=== PATIENT | female | born 1955 | race Hispanic/Latino ===

== ENCOUNTER → 2018-06-11 | Outpatient (CLI) | payer OTHER ==
[~2018-06-11] MED LIST: ASPI-1197 PO; ATOR40TA71 PO; BELI400V IV; CHOL500050 PO; DULA0.75 SQ; ESTR1VAG VG; FOLI1TAB15 PO; HYDR200T4 PO; INSLAN SQ; INSU100C14 SQ; INSU100I15 SQ; INSU200I SQ; LEVO150T11 PO; LEVO75TA10 PO; LINA5TAB PO; METF-446 PO; METH25VI11; METO5 PO; PRAV20TA4 PO; RAMI5CAP66 PO; RANI300T7 PO; REGADENOSON 0.4 MG/5 ML PF SYG IVP SCH; SOLI5 PO; SUCR1TAB2 PO; [UNRECOGNIZED DRUG - CODE] IARTIC; pepcid PO; vitamin d PO
== END | disposition home or self-care (01) ==
LOC: SHCH 10:00
PROVIDERS: ATTEND Internal Medicine Cardiovascular Disease
DX: Z01.810 Encounter for preprocedural cardiovascular examination (principal)
CPT/HCPCS: 78452; 93017; 96374; A9500 ×2; J2785

== ENCOUNTER → 2018-06-23 | Outpatient (CLI) | payer OTHER ==
[~2018-06-23] MED LIST changes: -REGADENOSON 0.4 MG/5 ML PF SYG IVP SCH
== END | disposition home or self-care (01) ==
LOC: OIH 14:44
PROVIDERS: ATTEND Internal Medicine Cardiovascular Disease
DX: Z13.6 Encounter for screening for cardiovascular disorders (principal)
CPT/HCPCS: 75571

== ENCOUNTER → 2018-06-23 | Outpatient (CLI) | payer OTHER ==
[~2018-06-23] VITALS: Ht 154.9 cm; Wt 121.7 kg
[~2018-06-23] MED LIST changes: +ACETAMINOPHEN 325 MG TAB PO PRN; +SODIUM CHLORIDE 0.9% 500ML 500 ML IV SCH
[2018-06-23 09:15] VITALS: BP 133/65
[2018-06-23 09:24] LABS: BASOPHILS % (AUTO) 0.7 % (0.0-5.0); EOSINOPHILS % (AUTO) 0.4 % (0.0-8.0); LYMPHOCYTES % (AUTO) 14.7 % (21.0-51.0); MEAN CORPUSCULAR HEMOGLOBIN 28.4 pg (27.0-33.0); MEAN CORPUSCULAR HGB CONC 32.8 g/dL (32.0-36.0); MEAN CORPUSCULAR VOLUME 86.5 fL (79-99); MONOCYTES % (AUTO) 7.5 % (3.0-13.0); NEUTROPHILS % (AUTO) 76.7 % (40.0-77.0); NUCLEATED RED BLOOD CELLS 0.1 % (0.0-0.19); PLATELET COUNT (AUTO) 163 K/uL (130-400); RED BLOOD CELL COUNT(AUTO) 4.28 MIL/uL (4.00-5.50); RED CELL DISTRIBUTION WIDTH 14.1 % (11.0-15.5); WHITE BLOOD COUNT (AUTO) 7.6 K/uL (4.8-10.8)
[2018-06-23 09:27] LABS: CREATININE 0.9 mg/dL (0.5-1.5); POTASSIUM 3.8 mmol/L (3.5-5.1)
[2018-06-23 09:30] LABS: BILIRUBIN,URINE Negative (NEGATIVE); COLOR,URINE Dark Yellow (YELLOW); GLUCOSE, URINE (UA) Negative (NEGATIVE); KETONES,URINE Trace mg/dL (NEGATIVE); LEUKOCYTE ESTERASE ,URINE Moderate (NEGATIVE); NITRATE,URINE Positive (NEGATIVE); OCCULT BLOOD,URINE Negative (NEGATIVE); PROTEIN,URINE Trace (NEGATIVE)
[2018-06-23 09:35] LABS: APPEARANCE,URINE SLIGHTLY CLOUDY (CLEAR)
[2018-06-23 09:36] LABS: BACTERIA,URINE Many /HPF (None Seen); RBC,URINE None Seen /HPF (0-1)
[2018-06-23 09:37] LABS: WBC,URINE 26-50 /HPF (0-1)
[2018-06-23 09:46] LABS: INR 0.9 (0.85-1.15); PROTHROMBIN TIME 9.5 SEC (9.6-11.6)
== END ==
LOC: EDSTATUS 08:00 → DAH 10:00
PROVIDERS: ATTEND Internal Medicine Cardiovascular Disease
DX: Z01.818 Encounter for other preprocedural examination (principal); I25.10 Atherosclerotic heart disease of native coronary artery without angina pectoris; Z88.2 Allergy status to sulfonamides; Z88.8 Allergy status to other drugs, medicaments and biological substances
CPT/HCPCS: 36415; 71045; 80048; 81001; 85025; 85610; 85730; 93005

== ENCOUNTER 2018-12-22 07:08 | Day surgery (SDC) | payer OTHER ==
[~2018-12-22] VITALS: Ht 156.2 cm; Wt 108.0 kg
[~2018-12-22 07:08] MED LIST changes: -ACETAMINOPHEN 325 MG TAB PO PRN; -ASPI-1197 PO; -ESTR1VAG VG; -INSU100C14 SQ; -INSU100I15 SQ; -INSU200I SQ; +LIDOCAINE HCL 1% 20 ML VIAL ONE; +ONDA8TAB5 PO; -PRAV20TA4 PO; +PROPOFOL 10 MG/ML 20ML VIAL IV ONE; +PROPOFOL 1000 MG/100 ML 100 ML IV ONE; -RAMI5CAP66 PO; +SODIUM CHLORIDE 0.9% 1000ML 1,000 ML IV ONE; -SODIUM CHLORIDE 0.9% 500ML 500 ML IV SCH; -pepcid PO; -vitamin d PO
[2018-12-22 08:28] VITALS: BP 105/51
[2018-12-22 10:19] VITALS: BP 138/62
[2018-12-22 10:24] VITALS: BP 135/59
[2018-12-22 10:29] VITALS: BP 132/62
[2018-12-22 10:35] VITALS: BP 149/67
[2018-12-22 10:40] VITALS: BP 121/49
--- NOTE | 2018-12-22 10:50 | NUR ---
NOTE PT STATES SHE HAS SOME ABDOMINAL DISCOMFORT. PT HAS BEEN PASSING OUT GAS. ABDOMEN SOFT. ASSISTED TO BATHROOM BY PCP. PT VERBALIZED RELIEF POST.
== END 2018-12-22 10:55 | disposition home or self-care (01) ==
LOC: DAH 07:08
PROVIDERS: ATTEND Internal Medicine
DX: Z12.11 Encounter for screening for malignant neoplasm of colon (principal); K64.1 Second degree hemorrhoids; K57.30 Diverticulosis of large intestine without perforation or abscess without bleeding; Z68.42 Body mass index [BMI] 45.0-49.9, adult; E11.9 Type 2 diabetes mellitus without complications; I10 Essential (primary) hypertension; E78.5 Hyperlipidemia, unspecified; E03.9 Hypothyroidism, unspecified; J45.909 Unspecified asthma, uncomplicated; M19.90 Unspecified osteoarthritis, unspecified site; G47.30 Sleep apnea, unspecified; M17.12 Unilateral primary osteoarthritis, left knee; M32.9 Systemic lupus erythematosus, unspecified; Z98.890 Other specified postprocedural states; Z90.710 Acquired absence of both cervix and uterus; Z79.84 Long term (current) use of oral hypoglycemic drugs; Z79.4 Long term (current) use of insulin; E66.9 Obesity, unspecified; K29.50 Unspecified chronic gastritis without bleeding; Z88.2 Allergy status to sulfonamides; Z88.8 Allergy status to other drugs, medicaments and biological substances
CPT/HCPCS: 82948 ×2; A4606; G0121; J2704 ×4; J7030; 45378

== ENCOUNTER 2019-03-23 09:32 | Day surgery (SDC) | payer OTHER ==
[~2019-03-23] VITALS: Ht 154.9 cm; Wt 105.7 kg
[~2019-03-23 09:32] MED LIST changes: +DEXT1DRO8 OP; +GLYCOPYRROLATE 0.2 MG/ML 5 ML VIAL ONE; +HUMALOG; -INSLAN SQ; +LANTUS; -PROPOFOL 10 MG/ML 20ML VIAL IV ONE; +TORADOL
[2019-03-23 12:55] VITALS: BP 115/61
[2019-03-23 13:14] VITALS: BP 131/63
[2019-03-23 13:19] VITALS: BP 113/56
[2019-03-23 13:24] VITALS: BP 118/56
[2019-03-23 13:29] VITALS: BP 118/56
[2019-03-23 13:34] VITALS: BP 120/56
--- NOTE | 2019-03-23 13:42 | NUR ---
dc pt dc home via [place], no distress noted. denied any pain or discomforts. accompanied by family friend Ivis
== END 2019-03-23 13:42 | disposition home or self-care (01) ==
LOC: ENDO 09:32 → DAH 09:32 → ENDO 13:42
PROVIDERS: ATTEND Internal Medicine
DX: K29.50 Unspecified chronic gastritis without bleeding (principal); K31.9 Disease of stomach and duodenum, unspecified; K31.89 Other diseases of stomach and duodenum; K22.8 Other specified diseases of esophagus; K44.9 Diaphragmatic hernia without obstruction or gangrene; R12 Heartburn; E11.9 Type 2 diabetes mellitus without complications; I10 Essential (primary) hypertension; E78.5 Hyperlipidemia, unspecified; E03.9 Hypothyroidism, unspecified; J45.909 Unspecified asthma, uncomplicated; M19.90 Unspecified osteoarthritis, unspecified site; K31.84 Gastroparesis; K57.30 Diverticulosis of large intestine without perforation or abscess without bleeding; K64.0 First degree hemorrhoids; E66.9 Obesity, unspecified; M32.9 Systemic lupus erythematosus, unspecified; Z79.4 Long term (current) use of insulin; Z79.899 Other long term (current) drug therapy; Z90.49 Acquired absence of other specified parts of digestive tract
CPT/HCPCS: 43239; 82948 ×2; 88305; A4606; J2704; J3490; J7030

== ENCOUNTER 2019-06-24 16:24 | Emergency (ER) | payer OTHER ==
[~2019-06-24 16:24] MED LIST changes: -GLYCOPYRROLATE 0.2 MG/ML 5 ML VIAL ONE; -LIDOCAINE HCL 1% 20 ML VIAL ONE; -PROPOFOL 1000 MG/100 ML 100 ML IV ONE; -SODIUM CHLORIDE 0.9% 1000ML 1,000 ML IV ONE
[2019-06-24] MEDS ORDERED: SODIUM CHLORIDE 0.9% 1000ML 1,000 ML IV ONE (17:09)
[2019-06-24] MEDS ORDERED: ONDANSETRON HCL 4 MG/2 ML VIAL ONE (17:09)
[2019-06-24 17:22] LABS: BASOPHILS % (AUTO) 0.5 % (0.0-5.0); EOSINOPHILS % (AUTO) 1.7 % (0.0-8.0); HEMATOCRIT 38.3 % (36-48); LYMPHOCYTES % (AUTO) 15.4 % (21.0-51.0); MEAN CORPUSCULAR HEMOGLOBIN 29.8 pg (27.0-33.0); MEAN CORPUSCULAR HGB CONC 33.4 g/dL (32.0-36.0); MEAN CORPUSCULAR VOLUME 89.2 fL (79-99); NEUTROPHILS % (AUTO) 76.4 % (40.0-77.0); NUCLEATED RED BLOOD CELLS 0.1 % (0.0-0.19); PLATELET COUNT (AUTO) 92 K/uL (130-400); RED CELL DISTRIBUTION WIDTH 14.6 % (11.0-15.5); WHITE BLOOD COUNT (AUTO) 6.1 K/uL (4.8-10.8)
[2019-06-24 17:23] LABS: APPEARANCE,URINE Cloudy (CLEAR); BILIRUBIN,URINE Negative (NEGATIVE); COLOR,URINE Yellow (YELLOW); GLUCOSE, URINE (UA) Negative (NEGATIVE); KETONES,URINE >=160 mg/dL (NEGATIVE); LEUKOCYTE ESTERASE ,URINE Moderate (NEGATIVE); NITRATE,URINE Negative (NEGATIVE); OCCULT BLOOD,URINE Negative (NEGATIVE); PH,URINE 5.5 (5.0-8.0); PROTEIN,URINE POS 1+ mg/dL (NEGATIVE)
[2019-06-24 17:31] LABS: AMPHET/METH SCREEN,URINE NEGATIVE (NEGATIVE); BARBITURATE SCREEN, URINE NEGATIVE (NEGATIVE); BENZODIAZEPINES SCREEN,URINE NEGATIVE (NEGATIVE); CANNABINOID SCREEN,URINE NEGATIVE (NEGATIVE); COCAINE SCREEN,URINE NEGATIVE (NEGATIVE); OPIATE SCREEN,URINE NEGATIVE (NEGATIVE); PHENCYCLIDINE SCREEN,URINE NEGATIVE (NEGATIVE)
[2019-06-24 17:39] LABS: CREATININE 0.8 mg/dL (0.5-1.5); POTASSIUM 3.1 mmol/L (3.5-5.1)
[2019-06-24 17:43] LABS: ALBUMIN 3.2 g/dL (3.5-5.0); BILIRUBIN,DIRECT 0.5 mg/dL (0.0-0.3); BILIRUBIN,TOTAL 2.3 mg/dL (0.2-1.0); TOTAL PROTEIN, SERUM 6.2 g/dL (6.0-8.3)
[2019-06-24 17:46] LABS: BACTERIA,URINE Many /HPF (None Seen)
[2019-06-24 17:47] LABS: MUCUS,URINE Many LPF (None Seen); SQUAMOUS EPITHELIAL CELL,UR Many /HPF (0-2)
[2019-06-24] MEDS ORDERED: ONDANSETRON ODT 4 MG TAB ONE (20:23)
[2019-06-24] MEDS ORDERED: POTASSIUM BICARB/CIT AC 25 MEQ TABLET.EFF ONE (21:19)
[2019-06-24] MEDS ORDERED: HEPARIN SODIUM/PF 100UNIT/ML 5ML SYRINGE IV ONE (21:28)
== END 2019-06-24 22:29 | disposition home or self-care (01) ==
LOC: EDH 16:24
DX: E86.0 Dehydration (principal); R53.1 Weakness; L93.0 Discoid lupus erythematosus; E03.9 Hypothyroidism, unspecified; J44.9 Chronic obstructive pulmonary disease, unspecified; E11.43 Type 2 diabetes mellitus with diabetic autonomic (poly)neuropathy; K31.84 Gastroparesis; Z90.49 Acquired absence of other specified parts of digestive tract; Z90.710 Acquired absence of both cervix and uterus; Z88.5 Allergy status to narcotic agent; Z88.2 Allergy status to sulfonamides
CPT/HCPCS: 36415; 80048; 80076; 80305; 81001; 83690; 85025; 96361; 96374; 99285; J1642; J2405; J7030

== ENCOUNTER → 2020-08-23 | Outpatient (CLI) | payer OTHER ==
[~2020-08-23] MED LIST changes: -ATOR40TA71 PO; -CHOL500050 PO; -DEXT1DRO8 OP; -DULA0.75 SQ; -FOLI1TAB15 PO; -HUMALOG; +IOHEXOL-350 50ML VIAL IV ONE; -LANTUS; -LEVO75TA10 PO; -LINA5TAB PO; -METF-446 PO; -METO5 PO; -ONDA8TAB5 PO; -RANI300T7 PO; -SOLI5 PO; -SUCR1TAB2 PO
== END | disposition home or self-care (01) ==
LOC: RAH 08:38
PROVIDERS: ATTEND Internal Medicine Gastroenterology
DX: N28.1 Cyst of kidney, acquired (principal)
CPT/HCPCS: 74178; Q9967

== ENCOUNTER → 2021-10-19 | Outpatient (CLI) | payer OTHER ==
[~2021-10-19] MED LIST changes: -IOHEXOL-350 50ML VIAL IV ONE
== END | disposition home or self-care (01) ==
LOC: RAH 08:43
PROVIDERS: ATTEND Internal Medicine
DX: N28.1 Cyst of kidney, acquired (principal); R10.9 Unspecified abdominal pain; E46 Unspecified protein-calorie malnutrition; R94.5 Abnormal results of liver function studies; R60.0 Localized edema; E88.09 Other disorders of plasma-protein metabolism, not elsewhere classified
CPT/HCPCS: 76700

== ENCOUNTER → 2022-07-08 | Outpatient (CLI) | payer OTHER | END | disposition home or self-care (01) | LOC: SHCH 13:18 | PROVIDERS: ATTEND Internal Medicine Cardiovascular Disease | DX: I25.10 Atherosclerotic heart disease of native coronary artery without angina pectoris (principal); R01.1 Cardiac murmur, unspecified; R06.00 Dyspnea, unspecified; R94.31 Abnormal electrocardiogram [ECG] [EKG] | CPT/HCPCS: 93306 ==

== ENCOUNTER → 2022-07-12 | Outpatient (CLI) | payer OTHER ==
[~2022-07-12] MED LIST changes: +REGADENOSON 0.4 MG/5 ML PF SYG IVP SCH
== END | disposition home or self-care (01) ==
LOC: SHCH 09:14
PROVIDERS: ATTEND Internal Medicine Cardiovascular Disease
DX: R94.31 Abnormal electrocardiogram [ECG] [EKG] (principal); R06.02 Shortness of breath; R01.1 Cardiac murmur, unspecified; I87.2 Venous insufficiency (chronic) (peripheral); Z79.899 Other long term (current) drug therapy
CPT/HCPCS: 78452; 96374; 93017; J2785; A9500 ×2

== ENCOUNTER → 2022-12-20 | Outpatient (CLI) | payer OTHER ==
[~2022-12-20] MED LIST changes: +IOHEXOL 350 MG/ML 100ML INFUS..BTL IV ONE; -REGADENOSON 0.4 MG/5 ML PF SYG IVP SCH
== END | disposition home or self-care (01) ==
LOC: RAH 12-18 10:04
PROVIDERS: ATTEND Internal Medicine Cardiovascular Disease
DX: I25.119 Atherosclerotic heart disease of native coronary artery with unspecified angina pectoris (principal); R07.9 Chest pain, unspecified
CPT/HCPCS: 75574; Q9967